=== PATIENT | female | born 2005 | race Caucasian/White ===

== ENCOUNTER 2024-02-20 09:30 | Outpatient (RCR) | payer OTHER, SELFPAY | END 2024-06-19 23:59 | disposition home or self-care (01) | PROVIDERS: Visit Provider Advanced Practice Midwife | DX: N94.10 Unspecified dyspareunia (principal); R10.2 Pelvic and perineal pain; R27.8 Other lack of coordination; Z51.89 Encounter for other specified aftercare | CPT/HCPCS: 97110; 97140; 97162; 97535 ==